=== PATIENT | male | born 1990 | race Caucasian/White ===

== ENCOUNTER 2016-10-16 12:32 | Observation (INO) | payer MEDICAID ==
[2016-10-16] MEDS ORDERED: Ketorolac 30 MG/ML SDV IVPUSH ONE (12:43)
[2016-10-16] MEDS ORDERED: Ondansetron 4 MG/2 ML SDV IVPUSH ONE (12:43)
[2016-10-16] MEDS ORDERED: Sodium Chloride 0.9% 1,000 ML IV ONE (12:43)
[2016-10-16] MEDS ORDERED: Sodium Chloride 0.9% 10 ML Syringe FLUSH PRN (12:43)
[2016-10-16] MEDS ORDERED: Sodium Chloride 0.9% 2.5 ML Syringe FLUSH PRN (12:43)
[2016-10-16] MEDS ORDERED: Aspirin 81 MG Tab.Chew PO ONE (12:43)
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
--- NOTE | 2016-10-16 13:19 | CR ---
EXAMINATION: Portable chest radiograph. HISTORY: Shortness of breath. FINDINGS: The trachea is midline. The cardiomediastinal silhouette is within normal limits. No pulmonary infil trates, effusions or pneumothorax. Osseous structures appear unremarkable. IMPRESSION: No acute cardiopulmonary process.
[2016-10-16 14:00] LABS: CHLORIDE,CL 108 mmol/L (98-110); SODIUM,NA 141 mmol/L (136-146)
[2016-10-16] MEDS ORDERED: Acetaminophen 325 MG Tab PO PRN (14:47)
[2016-10-16] MEDS ORDERED: Ondansetron 4 MG Tab.DIS PO PRN (14:47)
[2016-10-16] MEDS ORDERED: Nicotine 7 MG/24 Hr Patch TRDERM SCH (15:00)
[2016-10-16] MEDS: Enoxaparin 40 MG/0.4 ML Syringe SUBCUT SCH (15:03)
--- NOTE | 2016-10-16 16:22 | PCM.HP ---
H&P History of Present Illness - General Date of Service: 10/16/16 Admit Problem/Dx: Chest pain Source of Information: Patient History Limitations: Reports: No limitations - History of Present Illness Initial Comments - Free Text/Narative: 26 yo male with past medical history of methamphetamine use admitted on 10/16/16 for new chest pain. Patient intially presented with chest pain since approximatly 1030 the night previous. He describes it at constant, sharp, left sternal and nonradiating. He has no previous medical history and denies any family history of cardioplumonary disease. Patient takes no medications and is allegic to prednisone. He deined any trauma to the area. Patient stated that he "snorted " his last meth at approximately 1600 yesterday. He normally uses intravenously but did not have a needle. He has been an regular meth user since April of last year. He does admit to marijuana use but no other current drugs. He denies any associated shortness of breath or palpitations. He presented to the ED secondary to concern that the chest pain was "not going away". This has happened before but he usually uses and the pain goes away. He denies any nausea, vomiting, abdominal pain or recent illness. He did not take anything for the pain previous to presenting to the ED. In the ED, CBC, CMP, and UA were unremarkable. His intial troponin was <0.1 and ECG showed no acute ischemic changes. Urine was positive for Methamphetamine and THC. CXR showed no acute cardiopulmonary process. Patient received 324mg Aspirin, 30mg Toradol, and 4 mg Zofran. Patient will be admitted for chest pain and serial troponin will be followed. Anterior Chest Pain Score (Numeric/FACES): 0 - Related Data Allergies/Adverse Reactions: Allergies Allergy/AdvReac Type Severity Reaction Status Date / Time prednisone AdvReac violent Verified 10/16/16 12:33 behavior Home Medications: Home Meds . [No Known Home Meds] 10/16/16 [History] Past Medical History HEENT History: Reports: None Cardiovascular History: Reports: None Respiratory History: Reports: None Neurological History: Reports: None - Infectious Disease History Infectious Disease History: Reports: Chicken pox - Past Surgical History HEENT Surgical History: Reports: None Social & Family History - Tobacco Use Smoking Status *Q: Current Every Day Smoker Years of Tobacco use: 16 Packs/Tins Daily: 0.2 - Recreational Drug Use Recreational Drug Use: Yes Drug Use in Last 12 Months: Yes Recreational Drug Type: Reports: Methamphetamine H&P Review of Systems - Review of Systems: Review Of Systems: See Below General: Reports: diaphoresis. Denies: fever, chills HEENT: Reports: headaches. Denies: dysphasia, sinus congestion Pulmonary: Denies: Shortness of Breath, Hemoptysis Cardiovascular: Reports: chest pain. Denies: palpitations, syncope Gastrointestinal: Reports: Nausea. Denies: Abdominal pain, Black stool, Bloody stool, Diarrhea Genitourinary: Denies: dysuria, hematuria Musculoskeletal: Denies: neck pain, leg pain Skin: Denies: cyanosis Psychiatric: Reports: depression, anxiety Neurological: Reports: Headache. Denies: Confusion, Dizziness Hematologic/Lymphatic: Denies: anemia, easy bleeding Exam - Exam Exam: See Below - Vital Signs Vital Signs: Last Vital Signs Temp 36.3 C 10/16/16 15:30 Pulse 70 10/16/16 15:30 Resp 18 10/16/16 13:05 BP 136/64 10/16/16 15:30 Pulse Ox 98 10/16/16 13:05 Weight: 96 kg - Exam Quality Assessment: DVT prophylaxis General: alert, oriented, cooperative HEENT: Conjunctiva clear, EACs clear, EOMI, Hearing intact, Mucosa moist & pink , Nares patent, Normal nasal septum, Posterior pharynx clear, PERRLA Neck: supple, trachea midline, 2 Lungs: Clear to auscultation, Normal respiratory effort Cardiovascular: regular rate, regular rhythm, normal S1, normal S2 Abdomen: normal bowel sounds, soft Back Exam: normal inspection, full range of motion, NT Extremities: normal inspection, normal pulses. No: calf tenderness, edema Peripheral Pulses: 2+: radial (L), radial (R), posterior tibial (L), posterior tibial (R), dorsalis pedis (L), dorsalis pedis (R) Skin: warm, dry, intact Neurological: cranial nerves intact Neuro Extensive - Mental Status: alert, oriented x3, normal mood/affect, normal cognition Neuro Extensive - Motor, Sensory, Reflexes: CN II-XII intact, normal gait, normal reflexes Psychiatric: alert, normal affect, normal mood - Patient Data Result Diagrams: 10/16/16 13:10 10/16/16 13:10 *Q Meaningful Use (ADM) - VTE *Q VTE Criteria *Q: - Stroke *Q Stroke Criteria *Q: - AMI *Q AMI Criteria *Q: - Problem List (1) Atypical chest pain SNOMED Code(s): 103440093 ICD Code: R07.89 - OTHER CHEST PAIN Status: Acute Current Visit: Yes (2) Costochondritis, acute SNOMED Code(s): 67529781 ICD Code: M94.0 - CHONDROCOSTAL JUNCTION SYNDROME [TIETZE] Status: Acute Priority: High Current Visit: Yes (3) Methamphetamine use SNOMED Code(s): 696771429 ICD Code: F15.10 - OTHER STIMULANT ABUSE, UNCOMPLICATED Status: Acute Priority: High Current Visit: Yes Problem List Initiated/Reviewed/Updated: Yes Orders Last 24hrs: Medication Orders Acetaminophen (Tylenol) 650 mg PO Q4H PRN PRN Reason: Pain (Mild 1-3)/fever Enoxaparin Sodium (Lovenox) 40 mg SUBCUT DAILY [facility] Last Admin: 10/16/16 15:03 Dose: 40 mg Nicotine (Habitrol) 7 mg TRDERM DAILY [facility] Ondansetron HCl (Zofran Odt) 4 mg PO Q4H PRN PRN Reason: nausea, able to take PO Sodium Chloride (Saline Flush) 10 ml FLUSH ASDIRECTED PRN PRN Reason: Keep Vein Open Last Admin: 10/16/16 13:37 Dose: 10 ml Sodium Chloride (Saline Flush) 2.5 ml FLUSH ASDIRECTED PRN PRN Reason: Keep Vein Open Last Admin: 10/16/16 13:37 Dose: 2.5 ml Assessment/Plan Comment:: 26 yo male with atypical chest pain and history of recent Methamphetamine use. Atypical chest Pain: Reproducible on exam, most likely costochondritis. Will trend Troponin and place on telemetry overnight. Meth use: Patient has stated he wants/needs help and would like any information we can give him to get clean. He does have an appointment with [facility] services tomorrow. Dr. Meadows has given him some information for resources in the ED. Will provide more as needed. Will give lorazepam as needed for anxiety tonight. VTE: Lovenox sub q Dispo: Tomorrow pending.
[2016-10-16] MEDS ORDERED: Alum Hydrox/Mag Hydrox/Simeth 15 ML, Lidocaine 2% 5 ML PO ONE ×4 (16:49→17:00)
[2016-10-16] MEDS: LORazepam 0.5 MG Tab PO PRN (22:33)
[2016-10-17 05:02] LABS: CHLORIDE,CL 110 mmol/L (98-110); SODIUM,NA 142 mmol/L (136-146)
[2016-10-17] MEDS: Enoxaparin 40 MG/0.4 ML Syringe SUBCUT SCH (08:10)
--- NOTE | 2016-10-17 08:51 | PCM.DCSUM1 ---
Addendum entered and electronically signed by Caden Foster MD 10/17/16 20:32 : Discharge Summary - Hospital Course HPI Initial Comments: 26 yo male with past medical history of methamphetamine use admitted on 10/16/16 for new chest pain. Brief History: Patient intially presented with chest pain since approximatly 1030 the night previous. He described it as constant, sharp, left sternal and nonradiating. He had no previous medical history and denied any family history of cardioplumonary disease. Patient was taking no medications and only allergy was to prednisone. He deined any trauma to the area. Patient stated that he "snorted" his last meth at approximately 1600 the prior day before presenting. He normally uses intravenously but did not have a needle. He has been an regular meth user since April of last year. He did admit to marijuana use but no other current drugs. He denied any associated shortness of breath or palpitations. He presented to the ED secondary to concern that the chest pain was "not going away". This has happened before but he usually uses and the pain goes away. He denies any nausea, vomiting, abdominal pain or recent illness. He did not take anything for the pain previous to presenting to the ED. - Discharge Data Discharge Date: 10/17/16 Discharge Disposition: Home, Self-Care 01 Condition: Good - Discharge Diagnosis/Problem(s) (1) Atypical chest pain SNOMED Code(s): 534215289 ICD Code: R07.89 - OTHER CHEST PAIN Status: Acute (2) Costochondritis, acute SNOMED Code(s): 15133129 ICD Code: M94.0 - CHONDROCOSTAL JUNCTION SYNDROME [TIETZE] Status: Acute Priority: High (3) Methamphetamine use SNOMED Code(s): 663560204 ICD Code: F15.10 - OTHER STIMULANT ABUSE, UNCOMPLICATED Status: Acute Priority: High - Patient Summary/Data Hospital Course: In ED, intial troponin and EKG showed no signs of acute ischmeic changes. Patient was admitted for chest pain and serial troponins Patient did well and serial troponons were negative for ischemic changes. - Patient Instructions Diet: Usual Diet as Tolerated Activity: As Tolerated Driving: Do Not Drive Showering/Bathing: May Shower Notify Provider of: Fever, Increased Pain, Nausea and/or Vomiting Other/Special Instructions: Follow-up with PCP appointment. Follow-up with human services. Call [facility] for rehab. Resource info given. - Discharge Plan Home Medications: Home Meds . [No Known Home Meds] 10/16/16 [History] Patient Handouts: Nonspecific Chest Pain, [id number], Finding Treatment for Addiction, Stimulant Use Disorder-Methamphetamines Referrals: [facility] [Outside] Jeremy Huerta MD [Physician] - 10/26/16 9:00 am - Discharge Summary/Plan Comment DC Time >30 min.: No Discharge Summary/Plan Comment: 26 yo male with past medical history of methamphetamine use admitted on 10/16/16 for new chest pain. Patient intially presented with chest pain since approximatly 1030 the night previous. He described it as constant, sharp, left sternal and nonradiating. He had no previous medical history and denied any family history of cardioplumonary disease. Patient was taking no medications and only allergy was to prednisone. He deined any trauma to the area. Patient stated that he "snorted" his last meth at approximately 1600 the prior day before presenting. He normally uses intravenously but did not have a needle. He has been an regular meth user since April of last year. He did admit to marijuana use but no other current drugs. He denied any associated shortness of breath or palpitations. He presented to the ED secondary to concern that the chest pain was "not going away". This has happened before but he usually uses and the pain goes away. He denies any nausea, vomiting, abdominal pain or recent illness. He did not take anything for the pain previous to presenting to the ED. In ED, intial troponin and EKG showed no signs of acute ischmeic changes. Patient was admitted for chest pain and serial troponins Patient did well and serial troponons were negative for ischemic changes. Patient's chest pain was most likely secondary to costochondritis. He was discharged in good condition with a follow-up appointment made with a local physcian and given information for rehab services available in [place] as well as [place]. It was emphasize to patient to attend meeting as well as formal 30 day inpatient rehab for his addictions. Patient was instructed to return to ED if he had any return of symptoms - Patient Data Vitals - Most Recent: Last Vital Signs Temp 36.4 C 10/17/16 08:00 Pulse 54 L 10/17/16 08:00 Resp 16 10/17/16 08:00 BP 123/64 10/17/16 08:00 Pulse Ox 96 10/17/16 08:00 Weight - Most Recent: 96 kg I&O - Last 24 hours: Intake & Output 10/17/16 10/17/16 10/17/16 06:59 14:59 22:59 Intake Total 650 600 Output Total 450 Balance 650 150 Lab Results - Last 24 hrs: Laboratory Results - last 24 hr 10/16/16 10/17/16 10/17/16 Range/Units 22:14 04:28 04:28 WBC 5.55 (4.0-11.0) K/uL RBC 4.64 (4.50-5.90) M/uL Hgb 14.0 (13.0-17.0) g/dL Hct 41.8 (38.0-50.0) % MCV 90.1 (80.0-98.0) fL MCH 30.2 (27.0-32.0) pg MCHC 33.5 (31.0-37.0) g/dL RDW Std Deviation 43.3 (28.0-62.0) fl RDW Coeff of Philippe 13 (11.0-15.0) % Plt Count 143 L (150-400) K/uL MPV 12.20 H (7.40-12.00) fL Neut % (Auto) 38.4 L (48.0-80.0) % Lymph % (Auto) 46.1 H (16.0-40.0) % Hodgeman % (Auto) 11.9 (0.0-15.0) % Eos % (Auto) 3.1 (0.0-7.0) % Baso % (Auto) 0.5 (0.0-1.5) % Neut # 2.1 (1.4-5.7) K/uL Lymph # 2.6 H (0.6-2.4) K/uL Hodgeman # 0.7 (0.0-0.8) K/uL Eos # 0.2 (0.0-0.7) K/uL Baso # 0.0 (0.0-0.1) K/uL Nucleated RBC % 0.0 /100WBC Nucleated RBCs # 0 K/uL Sodium 142 (136-146) mmol/L Potassium 4.5 (3.5-5.1) mmol/L Chloride 110 (98-110) mmol/L Carbon Dioxide 24 (21-31) mmol/L BUN 13 (6.0-23.0) mg/dL Creatinine 1.1 (0.6-1.5) mg/dL Est Cr Clr Drug Dosing 138.18 mL/min Estimated GFR (MDRD) > 60.0 ml/min Glucose 79 (60-110) mg/dL Calcium 8.6 L (8.8-10.8) mg/dL Troponin I < 0.10 (0.0-0.29) NG/ML 10/17/16 Range/Units 04:28 WBC (4.0-11.0) K/uL RBC (4.50-5.90) M/uL Hgb (13.0-17.0) g/dL Hct (38.0-50.0) % MCV (80.0-98.0) fL MCH (27.0-32.0) pg MCHC (31.0-37.0) g/dL RDW Std Deviation (28.0-62.0) fl RDW Coeff of Philippe (11.0-15.0) % Plt Count (150-400) K/uL MPV (7.40-12.00) fL Neut % (Auto) (48.0-80.0) % Lymph % (Auto) (16.0-40.0) % Hodgeman % (Auto) (0.0-15.0) % Eos % (Auto) (0.0-7.0) % Baso % (Auto) (0.0-1.5) % Neut # (1.4-5.7) K/uL Lymph # (0.6-2.4) K/uL Hodgeman # (0.0-0.8) K/uL Eos # (0.0-0.7) K/uL Baso # (0.0-0.1) K/uL Nucleated RBC % /100WBC Nucleated RBCs # K/uL Sodium (136-146) mmol/L Potassium (3.5-5.1) mmol/L Chloride (98-110) mmol/L Carbon Dioxide (21-31) mmol/L BUN (6.0-23.0) mg/dL Creatinine (0.6-1.5) mg/dL Est Cr Clr Drug Dosing mL/min Estimated GFR (MDRD) ml/min Glucose (60-110) mg/dL Calcium (8.8-10.8) mg/dL Troponin I < 0.10 (0.0-0.29) NG/ML Med Orders - Current: Current Medications Discontinued Medications Acetaminophen (Tylenol) 650 mg PO Q4H PRN PRN Reason: Pain (Mild 1-3)/fever Aspirin (Aspirin) 324 mg PO ONETIME ONE Stop: 10/16/16 12:44 Last Admin: 10/16/16 13:36 Dose: 324 mg Al Hydroxide/Mg Hydroxide 15 (ml/ Lidocaine HCl 5 ml) 0 ml PO ONETIME ONE Stop: 10/16/16 16:50 Last Admin: 10/16/16 18:23 Dose: Not Given Al Hydroxide/Mg Hydroxide 15 (ml/ Lidocaine HCl 5 ml) 0 ml PO ONETIME ONE Stop: 10/16/16 17:01 Last Admin: 10/16/16 18:28 Dose: 1 each Enoxaparin Sodium (Lovenox) 40 mg SUBCUT DAILY [facility] Last Admin: 10/17/16 08:10 Dose: 40 mg Sodium Chloride (Normal Saline) 1,000 mls @ 999 mls/hr IV STAT ONE Stop: 10/16/16 13:43 Last Admin: 10/16/16 13:46 Dose: 999 mls/hr Ketorolac Tromethamine (Toradol) 30 mg IVPUSH ONETIME ONE Stop: 10/16/16 12:44 Last Admin: 10/16/16 13:38 Dose: 30 mg Lorazepam (Ativan) 0.5 mg PO Q4H PRN PRN Reason: Anxiety Last Admin: 10/17/16 09:43 Dose: 0.5 mg Nicotine (Habitrol) 7 mg TRDERM DAILY [facility] Last Admin: 10/16/16 19:54 Dose: Not Given Ondansetron HCl (Zofran) 4 mg IVPUSH ONETIME ONE Stop: 10/16/16 12:44 Last Admin: 10/16/16 13:38 Dose: 4 mg Ondansetron HCl (Zofran Odt) 4 mg PO Q4H PRN PRN Reason: nausea, able to take PO Sodium Chloride (Saline Flush) 10 ml FLUSH ASDIRECTED PRN PRN Reason: Keep Vein Open Last Admin: 10/16/16 13:37 Dose: 10 ml Sodium Chloride (Saline Flush) 2.5 ml FLUSH ASDIRECTED PRN PRN Reason: Keep Vein Open Last Admin: 10/16/16 13:37 Dose: 2.5 ml Original Note: <Tate Fosterin - Last Filed: 10/17/16 20:26> Discharge Summary - Hospital Course HPI Initial Comments: 26 yo male with past medical history of methamphetamine use admitted on 10/16/16 for new chest pain. Brief History: Patient intially presented with chest pain since approximatly 1030 the night previous. He described it as constant, sharp, left sternal and nonradiating. He had no previous medical history and denied any family history of cardioplumonary disease. Patient was taking no medications and only allergy was to prednisone. He deined any trauma to the area. Patient stated that he "snorted" his last meth at approximately 1600 the prior day before presenting. He normally uses intravenously but did not have a needle. He has been an regular meth user since April of last year. He did admit to marijuana use but no other current drugs. He denied any associated shortness of breath or palpitations. He presented to the ED secondary to concern that the chest pain was "not going away". This has happened before but he usually uses and the pain goes away. He denies any nausea, vomiting, abdominal pain or recent illness. He did not take anything for the pain previous to presenting to the ED. - Discharge Data Discharge Date: 10/17/16 Discharge Disposition: Home, Self-Care 01 Condition: Good - Discharge Diagnosis/Problem(s) (1) Atypical chest pain SNOMED Code(s): 135115398 ICD Code: R07.89 - OTHER CHEST PAIN Status: Acute (2) Costochondritis, acute SNOMED Code(s): 33368862 ICD Code: M94.0 - CHONDROCOSTAL JUNCTION SYNDROME [TIETZE] Status: Acute Priority: High (3) Methamphetamine use SNOMED Code(s): 003288490 ICD Code: F15.10 - OTHER STIMULANT ABUSE, UNCOMPLICATED Status: Acute Priority: High - Patient Instructions Diet: Usual Diet as Tolerated Activity: As Tolerated Driving: Do Not Drive Showering/Bathing: May Shower Notify Provider of: Fever, Increased Pain, Nausea and/or Vomiting Other/Special Instructions: Follow-up with PCP appointment. Follow-up with human services. Call [facility] for re[facility]. Resource info given. - Discharge Plan Home Medications: Home Meds . [No Known Home Meds] 10/16/16 [History] Patient Handouts: Nonspecific Chest Pain, [id number], Finding Treatment for Addiction, Stimulant Use Disorder-Methamphetamines Referrals: [facility] [Outside] Jeremy Huerta MD [Physician] - 10/26/16 9:00 am - General Info Date of Service: 10/17/16 Admission Dx/Problem (Free Text: Chest pain Functional Status: Reports: pain controlled, tolerating diet - Review of Systems General: Denies: Fever, Weakness, Fatigue HEENT: Denies: sinus congestion Pulmonary: Denies: shortness of breath, pleuritic chest pain, wheezing Cardiovascular: Denies: Chest Pain, Palpitations, Edema Gastrointestinal: Denies: Abdominal pain, Constipation, Vomiting Genitourinary: Denies: dysuria, hematuria Musculoskeletal: Denies: leg pain Skin: Denies: cyanosis Neurological: Denies: Confusion, Dizziness Psychiatric: Reports: anxiety. Denies: confusion - Patient Data Vitals - Most Recent: Last Vital Signs Temp 36.8 C 10/17/16 04:00 Pulse 49 L 10/17/16 04:00 Resp 18 10/17/16 04:00 BP 127/56 L 10/17/16 04:00 Pulse Ox 96 10/17/16 00:00 Weight - Most Recent: 96 kg I&O - Last 24 hours: Intake & Output 10/16/16 10/17/16 10/17/16 22:59 06:59 14:59 Intake Total 650 Balance 650 Lab Results - Last 24 hrs: Laboratory Results - last 24 hr 10/16/16 10/16/16 10/17/16 Range/Units 16:50 22:14 04:28 WBC 5.55 (4.0-11.0) K/uL RBC 4.64 (4.50-5.90) M/uL Hgb 14.0 (13.0-17.0) g/dL Hct 41.8 (38.0-50.0) % MCV 90.1 (80.0-98.0) fL MCH 30.2 (27.0-32.0) pg MCHC 33.5 (31.0-37.0) g/dL RDW Std Deviation 43.3 (28.0-62.0) fl RDW Coeff of Philippe 13 (11.0-15.0) % Plt Count 143 L (150-400) K/uL MPV 12.20 H (7.40-12.00) fL Neut % (Auto) 38.4 L (48.0-80.0) % Lymph % (Auto) 46.1 H (16.0-40.0) % Hodgeman % (Auto) 11.9 (0.0-15.0) % Eos % (Auto) 3.1 (0.0-7.0) % Baso % (Auto) 0.5 (0.0-1.5) % Neut # 2.1 (1.4-5.7) K/uL Lymph # 2.6 H (0.6-2.4) K/uL Hodgeman # 0.7 (0.0-0.8) K/uL Eos # 0.2 (0.0-0.7) K/uL Baso # 0.0 (0.0-0.1) K/uL Nucleated RBC % 0.0 /100WBC Nucleated RBCs # 0 K/uL Sodium (136-146) mmol/L Potassium (3.5-5.1) mmol/L Chloride (98-110) mmol/L Carbon Dioxide (21-31) mmol/L BUN (6.0-23.0) mg/dL Creatinine (0.6-1.5) mg/dL Est Cr Clr Drug Dosing mL/min Estimated GFR (MDRD) ml/min Glucose (60-110) mg/dL Calcium (8.8-10.8) mg/dL Troponin I < 0.10 < 0.10 (0.0-0.29) NG/ML 10/17/16 10/17/16 Range/Units 04:28 04:28 WBC (4.0-11.0) K/uL RBC (4.50-5.90) M/uL Hgb (13.0-17.0) g/dL Hct (38.0-50.0) % MCV (80.0-98.0) fL MCH (27.0-32.0) pg MCHC (31.0-37.0) g/dL RDW Std Deviation (28.0-62.0) fl RDW Coeff of Philippe (11.0-15.0) % Plt Count (150-400) K/uL MPV (7.40-12.00) fL Neut % (Auto) (48.0-80.0) % Lymph % (Auto) (16.0-40.0) % Hodgeman % (Auto) (0.0-15.0) % Eos % (Auto) (0.0-7.0) % Baso % (Auto) (0.0-1.5) % Neut # (1.4-5.7) K/uL Lymph # (0.6-2.4) K/uL Hodgeman # (0.0-0.8) K/uL Eos # (0.0-0.7) K/uL Baso # (0.0-0.1) K/uL Nucleated RBC % /100WBC Nucleated RBCs # K/uL Sodium 142 (136-146) mmol/L Potassium 4.5 (3.5-5.1) mmol/L Chloride 110 (98-110) mmol/L Carbon Dioxide 24 (21-31) mmol/L BUN 13 (6.0-23.0) mg/dL Creatinine 1.1 (0.6-1.5) mg/dL Est Cr Clr Drug Dosing 138.18 mL/min Estimated GFR (MDRD) > 60.0 ml/min Glucose 79 (60-110) mg/dL Calcium 8.6 L (8.8-10.8) mg/dL Troponin I < 0.10 (0.0-0.29) NG/ML Med Orders - Current: Current Medications Acetaminophen (Tylenol) 650 mg PO Q4H PRN PRN Reason: Pain (Mild 1-3)/fever Enoxaparin Sodium (Lovenox) 40 mg SUBCUT DAILY [facility] Last Admin: 10/17/16 08:10 Dose: 40 mg Lorazepam (Ativan) 0.5 mg PO Q4H PRN PRN Reason: Anxiety Last Admin: 10/16/16 22:33 Dose: 0.5 mg Ondansetron HCl (Zofran Odt) 4 mg PO Q4H PRN PRN Reason: nausea, able to take PO Sodium Chloride (Saline Flush) 10 ml FLUSH ASDIRECTED PRN PRN Reason: Keep Vein Open Last Admin: 10/16/16 13:37 Dose: 10 ml Sodium Chloride (Saline Flush) 2.5 ml FLUSH ASDIRECTED PRN PRN Reason: Keep Vein Open Last Admin: 10/16/16 13:37 Dose: 2.5 ml Discontinued Medications Aspirin (Aspirin) 324 mg PO ONETIME ONE Stop: 10/16/16 12:44 Last Admin: 10/16/16 13:36 Dose: 324 mg Al Hydroxide/Mg Hydroxide 15 (ml/ Lidocaine HCl 5 ml) 0 ml PO ONETIME ONE Stop: 10/16/16 16:50 Last Admin: 10/16/16 18:23 Dose: Not Given Al Hydroxide/Mg Hydroxide 15 (ml/ Lidocaine HCl 5 ml) 0 ml PO ONETIME ONE Stop: 10/16/16 17:01 Last Admin: 10/16/16 18:28 Dose: 1 each Sodium Chloride (Normal Saline) 1,000 mls @ 999 mls/hr IV STAT ONE Stop: 10/16/16 13:43 Last Admin: 10/16/16 13:46 Dose: 999 mls/hr Ketorolac Tromethamine (Toradol) 30 mg IVPUSH ONETIME ONE Stop: 10/16/16 12:44 Last Admin: 10/16/16 13:38 Dose: 30 mg Nicotine (Habitrol) 7 mg TRDERM DAILY [facility] Last Admin: 10/16/16 19:54 Dose: Not Given Ondansetron HCl (Zofran) 4 mg IVPUSH ONETIME ONE Stop: 10/16/16 12:44 Last Admin: 10/16/16 13:38 Dose: 4 mg - Exam Quality Assessment: Reports: DVT prophylaxis General: Reports: alert, oriented, cooperative, no acute distress HEENT: Reports: Pupils equal, Pupils reactive, EOMI, Mucous membr. moist/pink Neck: Reports: supple Lungs: Reports: Clear to auscultation, Normal respiratory effort Cardiovascular: Reports: Regular Rate, Regular Rhythm, No Murmurs Abdomen: Reports: bowel sounds present, soft, no tenderness, no distension (Male) Exam: Circumcised Back Exam: Reports: normal inspection Extremities: Reports: no edema, normal pulses Skin: Reports: warm, dry, intact Neurological: Reports: no new focal deficit Psy/Mental Status: Reports: alert, normal affect, normal mood *Q Meaningful Use (DIS) - VTE *Q VTE Criteria *Q: - Stroke *Q Stroke Criteria *Q: - AMI *Q AMI Criteria *Q: <Mrevin Daniels - Last Filed: 10/18/16 16:04> - Patient Data Vitals - Most Recent: Last Vital Signs Temp 36.4 C 10/17/16 08:00 Pulse 54 L 10/17/16 08:00 Resp 16 10/17/16 08:00 BP 123/64 10/17/16 08:00 Pulse Ox 96 10/17/16 08:00 Med Orders - Current: Current Medications Discontinued Medications Acetaminophen (Tylenol) 650 mg PO Q4H PRN PRN Reason: Pain (Mild 1-3)/fever Aspirin (Aspirin) 324 mg PO ONETIME ONE Stop: 10/16/16 12:44 Last Admin: 10/16/16 13:36 Dose: 324 mg Al Hydroxide/Mg Hydroxide 15 (ml/ Lidocaine HCl 5 ml) 0 ml PO ONETIME ONE Stop: 10/16/16 16:50 Last Admin: 10/16/16 18:23 Dose: Not Given Al Hydroxide/Mg Hydroxide 15 (ml/ Lidocaine HCl 5 ml) 0 ml PO ONETIME ONE Stop: 10/16/16 17:01 Last Admin: 10/16/16 18:28 Dose: 1 each Enoxaparin Sodium (Lovenox) 40 mg SUBCUT DAILY [facility] Last Admin: 10/17/16 08:10 Dose: 40 mg Sodium Chloride (Normal Saline) 1,000 mls @ 999 mls/hr IV STAT ONE Stop: 10/16/16 13:43 Last Admin: 10/16/16 13:46 Dose: 999 mls/hr Ketorolac Tromethamine (Toradol) 30 mg IVPUSH ONETIME ONE Stop: 10/16/16 12:44 Last Admin: 10/16/16 13:38 Dose: 30 mg Lorazepam (Ativan) 0.5 mg PO Q4H PRN PRN Reason: Anxiety Last Admin: 10/17/16 09:43 Dose: 0.5 mg Nicotine (Habitrol) 7 mg TRDERM DAILY [facility] Last Admin: 10/16/16 19:54 Dose: Not Given Ondansetron HCl (Zofran) 4 mg IVPUSH ONETIME ONE Stop: 10/16/16 12:44 Last Admin: 10/16/16 13:38 Dose: 4 mg Ondansetron HCl (Zofran Odt) 4 mg PO Q4H PRN PRN Reason: nausea, able to take PO Sodium Chloride (Saline Flush) 10 ml FLUSH ASDIRECTED PRN PRN Reason: Keep Vein Open Last Admin: 10/16/16 13:37 Dose: 10 ml Sodium Chloride (Saline Flush) 2.5 ml FLUSH ASDIRECTED PRN PRN Reason: Keep Vein Open Last Admin: 10/16/16 13:37 Dose: 2.5 ml *Q Meaningful Use (DIS) - VTE *Q VTE Criteria *Q: - Stroke *Q Stroke Criteria *Q: - AMI *Q AMI Criteria *Q: - Free Text/Narrative Note: I have examined the patient. I have discussed findings and treatment plan with resident. I agree with the assessment and plan outlined in the resident's note.
[2016-10-17 08:58] VITALS: BP 123/64
[2016-10-17] MEDS: LORazepam 0.5 MG Tab PO PRN (09:43)
== END 2016-10-17 13:30 | disposition home or self-care (01) ==
LOC: MW.ED 12:32 → MW.MS 15:01
PROVIDERS: ADMIT Internal Medicine; ATTEND Internal Medicine
DX: R07.89 Other chest pain (principal); F15.10 Other stimulant abuse, uncomplicated; F17.210 Nicotine dependence, cigarettes, uncomplicated; Z88.8 Allergy status to other drugs, medicaments and biological substances
CPT/HCPCS: 36415; 71010; 80048; 80053; 80305; 81001; 84484; 85025; 93005; 96361; 96372; 96374; 96375; 99285; A9270; G0378; J1650; J1885; J2405; J7040